=== PATIENT | male | born 1995 | race Caucasian/White ===

== ENCOUNTER 2019-09-05 10:41 | Emergency (ER) | payer OTHER ==
[2019-09-05] MEDS ORDERED: Acetaminophen 500 MG Tab PO ONE (11:08)
[2019-09-05] MEDS ORDERED: Diphtheria,Pertussis(Acell),Tetanus Vaccine 0.5 ML SDV IM ONE (11:08)
--- NOTE | 2019-09-05 11:14 | EDM.PDOC ---
ED HPI GENERAL MEDICAL PROBLEM - General Chief Complaint: Laceration Stated Complaint: CUT ON L RING FINGER Time Seen by Provider: 09/05/19 11:00 Source of Information: Reports: Patient, RN History Limitations: Reports: No Limitations - History of Present Illness INITIAL COMMENTS - FREE TEXT/NARRATIVE: 24 yo male got his L ring finger tip caught between 2 pieces of metal this morning. Has a laceration to the distal L ring finger, beltran aspect. Is new in area from [place] and is not certain about the timing of his last tetanus. 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 below) (none) Left 4th digit Pain Score (Numeric/FACES): 7 - Related Data Allergies Allergy/AdvReac Type Severity Reaction Status Date / Time No Known Allergies Allergy Verified 09/05/19 11:13 Home Meds: Home Meds Fexofenadine [Stephanie] 180 mg PO DAILY 09/05/19 [History] Multivitamin [Daily Multiple Vitamin] 1 tab PO DAILY 09/05/19 [History] ED ROS GENERAL - Review of Systems Review Of Systems: See Below Constitutional: Reports: No Symptoms Musculoskeletal: Reports: Hand Pain (L 4th finger tip) Skin: Reports: Wound (laceration to distal L 4th finger) Neurological: Reports: No Symptoms ED EXAM, SKIN/RASH Exam: See Below Exam Limited By: No Limitations General Appearance: Alert, WD/WN, No Apparent Distress Extremities: Other (wound distal L 4th finger) Neurological: Alert, Oriented, CN II-XII Intact, Normal Cognition, No Motor/ Sensory Deficits Psychiatric: Normal Affect, Normal Mood Skin: Warm, Dry, Normal Color, No Rash, Wound/Incision (0.7 cm linear wound to the distal L ring finger, beltran aspect. ) Location, Skin: Upper Extremity, Left Characteristics: Linear Associated features: Tenderness Course - Orders/Labs/Meds Orders: Active Orders 24 hr Category Date Time Status Vaccines to be Administered [RC] PER UNIT ROUTINE Care 09/05/19 11:09 Active Fingers Fourth Digit Lt F3 [CR] Stat Exams 09/05/19 11:05 Ordered Meds: Medications Discontinued Medications Generic Name Dose Route Start Last Admin Trade Name Norman PRN Reason Stop Dose Admin Acetaminophen 1,000 mg 09/05/19 11:08 09/05/19 11:15 Tylenol Extra Strength PO 09/05/19 11:09 1,000 mg ONETIME ONE Administration Diphtheria/Tetanus/Acell Pertussis 0.5 ml 09/05/19 11:08 09/05/19 11:15 Adacel IM 09/05/19 11:09 0.5 ml .ONCE ONE Administration - Radiology Interpretation Free Text/Narrative:: L ring finger X-ray-neg - Re-Assessments/Exams Free Text/Narrative Re-Assessment/Exam: 09/05/19 11:42 Patient strongly does not want stitches. Will work with this. Departure - Departure Time of Disposition: 11:50 Disposition: Home, Self-Care 01 Condition: Good Clinical Impression: Finger laceration Qualifiers: Encounter type: initial encounter Finger: ring finger Damage to nail status: without damage Foreign body presence: without foreign body Laterality: left Qualified Code(s): S61.215A - Laceration without foreign body of left ring finger without damage to nail, initial encounter - Discharge Information *PRESCRIPTION DRUG MONITORING PROGRAM REVIEWED*: Not Applicable *COPY OF PRESCRIPTION DRUG MONITORING REPORT IN PATIENT [place]: Not Applicable Forms: ED Department Discharge Additional Instructions: Clean wound twice daily with soap and water. Dry. Apply antibiotic ointment and a new dressing. Take acetaminophen up to 1000 mg every 6 hrs as needed for pain relief. Elevate your finger to reduce swelling, pain, and bleeding. Keep wound clean x 3 days to reduce risk of infection. Recheck for signs of infection. - My Orders Last 24 Hours: My Active Orders 09/05/19 11:05 Fingers Fourth Digit Lt F3 [CR] Stat 09/05/19 11:09 Vaccines to be Administered [RC] PER UNIT ROUTINE - Assessment/Plan Last 24 Hours: My Active Orders 09/05/19 11:05 Fingers Fourth Digit Lt F3 [CR] Stat 09/05/19 11:09 Vaccines to be Administered [RC] PER UNIT ROUTINE
--- NOTE | 2019-09-05 17:12 | CR ---
INDICATION: Laceration injury. Caught between two pieces of metal. LEFT FOURTH FINGER: Three views of the left fourth finger were obtained and revealed hairline fracture of the ungual tuft of the left fourth finger - essentially anatomic position and alignment of the fracture fragments as noted. No other bone or joint abnormality was identified. Report was called to Dr. Gaines at approximately 1315 hours. [facility]
== END 2019-09-05 12:00 | disposition home or self-care (01) ==
LOC: FB.ED 10:41
DX: S61.215A Laceration without foreign body of left ring finger without damage to nail, initial encounter (principal); Z79.899 Other long term (current) drug therapy; Z23 Encounter for immunization; W23.0XXA Caught, crushed, jammed, or pinched between moving objects, initial encounter
CPT/HCPCS: 73140; 90471; 90715; 99283; A9270

== ENCOUNTER 2019-10-17 11:45 | Emergency (ER) | payer OTHER ==
--- NOTE | 2019-10-17 13:23 | EDM.PDOC ---
ED HPI GENERAL MEDICAL PROBLEM - General Chief Complaint: General Stated Complaint: COUGH Time Seen by Provider: 10/17/19 13:20 Source of Information: Reports: Patient History Limitations: Reports: No Limitations - History of Present Illness INITIAL COMMENTS - FREE TEXT/NARRATIVE: Presents with subjective fever and fatigue x 2 days. Co-workers with similar symptoms. Work sent him to the ED for COVID-19 testing. Denies chest pain or SOB. Has had diarrhea. Onset Date: 10/15/19 Severity: Mild - Related Data Allergies Allergy/AdvReac Type Severity Reaction Status Date / Time No Known Allergies Allergy Verified 09/05/19 11:13 Home Meds: Home Meds Fexofenadine [Stephanie] 180 mg PO DAILY 09/05/19 [History] Multivitamin [Daily Multiple Vitamin] 1 tab PO DAILY 09/05/19 [History] Past Medical History Psychiatric History: Reports: Anxiety, Depression - Past Surgical History Musculoskeletal Surgical History: Reports: Other (See Below) Other Musculoskeletal Surgeries/Procedures:: Plate in his right forearm, and surgery for collapsed pelvis Social & Family History - Caffeine Use Caffeine Use: Reports: Coffee, Energy Drinks ED ROS GENERAL - Review of Systems Review Of Systems: Comprehensive ROS is negative, except as noted in HPI. ED EXAM, GENERAL - Physical Exam Exam: See Below Exam Limited By: No Limitations General Appearance: Alert, WD/WN, No Apparent Distress Nose: Normal Inspection Throat/Mouth: Normal Oropharynx, No Airway Compromise Head: Atraumatic, Normocephalic Neck: Supple Respiratory/Chest: No Respiratory Distress, Lungs Clear, Normal Breath Sounds Cardiovascular: Regular Rate, Rhythm, No Murmur GI/Abdominal: No Distention Back Exam: Full Range of Motion Extremities: Normal Range of Motion Neurological: Alert, Normal Cognition Skin Exam: Warm, Dry, Intact Course - Vital Signs Last Recorded V/S: Last Vital Signs Temp 37.3 C 10/17/19 11:55 Pulse 101 H 10/17/19 11:55 Resp 18 10/17/19 11:55 BP 131/65 10/17/19 11:55 Pulse Ox 99 10/17/19 11:55 - Orders/Labs/Meds Labs: Laboratory Tests 10/17/19 Range/Units 11:57 SARS Virus RNA (PCR) Negative (NEGATIVE) Departure - Departure Time of Disposition: 13:25 Disposition: Home, Self-Care 01 Condition: Good Clinical Impression: Viral syndrome - Discharge Information *PRESCRIPTION DRUG MONITORING PROGRAM REVIEWED*: No *COPY OF PRESCRIPTION DRUG MONITORING REPORT IN PATIENT [place]: Not Applicable Instructions: Viral Illness, Adult Forms: ED Department Discharge Additional Instructions: Take Tylenol as needed. Push fluids. Follow up as needed. Sepsis Event Note (ED) - Focused Exam Vital Signs: Vital Signs Temp Pulse Resp BP Pulse Ox 10/17/19 11:55 37.3 C 101 H 18 131/65 99
== END 2019-10-17 13:47 | disposition home or self-care (01) ==
LOC: FB.ED 11:45
DX: B34.9 Viral infection, unspecified (principal); Z20.828 Contact with and (suspected) exposure to other viral communicable diseases
CPT/HCPCS: 99282; 99283; U0002